=== PATIENT | male | born 2005 | race Caucasian/White ===

== ENCOUNTER 2023-04-30 11:25 | Emergency (ER) | payer BC, MEDICAID ==
[~2023-04-30] VITALS: Ht 180.3 cm; Wt 118.2 kg
[2023-04-30 12:38] VITALS: BP 134/72
== END 2023-04-30 13:44 | disposition home or self-care (01) ==
LOC: ER 11:26
DX: J06.9 Acute upper respiratory infection, unspecified (principal); Z20.822 Contact with and (suspected) exposure to COVID-19
CPT/HCPCS: 71045; 87081; 87502; 87503; 87811; 87880; 99284

== ENCOUNTER 2024-01-02 13:11 | Emergency (ER) | payer MEDICAID ==
[~2024-01-02] VITALS: Ht 180.3 cm; Wt 98.8 kg
[2024-01-02 16:46] LABS: STREP A SCREEN NEGATIVE (Neg)
[2024-01-02] MEDS ORDERED: PRED20TA PO (17:48)
[2024-01-02] MEDS ORDERED: AMOX-117 PO (17:48)
[2024-01-02 17:57] VITALS: BP 147/95; PULSE 81; RESP 18; TEMP 98.4; O2SAT 95
== END 2024-01-02 18:00 | disposition home or self-care (01) ==
LOC: ER 13:12
DX: J04.0 Acute laryngitis (principal)
CPT/HCPCS: 87081; 87880; 99283